=== PATIENT | female | born 1995 | race Hispanic/Latino ===

== ENCOUNTER 2019-10-22 20:05 | Emergency (ER) | payer OTHER ==
[2019-10-23 02:12] LABS: Bilirubin,Urine NEG (Negative); Blood,Urine SM (Negative); Color,Urine Yellow (Yellow); Mucus,Urine FEW /HPF; Protein,Urine <15 mg/dL mg/dL (Negative)
--- NOTE | 2019-10-23 03:44 | Ultrasound Report ---
US OB <= 14 weeks fetus, US OB transvaginal INDICATION / CLINICAL INFORMATION: preg with abd pain/bleeding. COMPARISON: None available. FINDINGS: Single, viable intrauterine . heart rate 112. [place]-rump length measures 4.1 mm, corresponding to a gestational age of 6 weeks 1 day. Both ovaries are negative. No free fluid. IMPRESSION: 1. Single, viable 6 week 1 day intrauterine . Signer Name: Delvis Scruggs MD Signed: 10/23/2019 3:39 AM Workstation Name: [email or web address]
--- NOTE | 2019-10-23 03:44 | Ultrasound Report ---
US OB <= 14 weeks fetus, US OB transvaginal INDICATION / CLINICAL INFORMATION: preg with abd pain/bleeding. COMPARISON: None available. FINDINGS: Single, viable intrauterine . heart rate 112. [place]-rump length measures 4.1 mm, corresponding to a gestational age of 6 weeks 1 day. Both ovaries are negative. No free fluid. IMPRESSION: 1. Single, viable 6 week 1 day intrauterine . Signer Name: Delvis Scruggs MD Signed: 10/23/2019 3:39 AM Workstation Name: [email or web address]
--- NOTE | 2019-10-23 04:42 | Emergency Department Report ---
ED HPI - General Chief complaint: Vaginal Bleeding Stated complaint: VAGINAL SPOTTING Time Seen by Provider: 10/23/19 02:24 Source: patient Mode of arrival: Ambulatory Limitations: No Limitations - History of Present Illness Initial comments: Patient is a 23-year-old female sparsely 6 weeks who saw small amount of blood on the toilet paper after wiping. Patient states occasionally she will have some sharp suprapubic discomfort but is pain-free at this time. Patient denies any dysuria vaginal discharge nausea vomiting d iarrhea fevers or chills. - Related Data Allergies Allergy/AdvReac Type Severity Reaction Status Date / Time No Known Allergies Allergy Unverified 10/23/19 01:49 ED Review of Systems ROS: Stated complaint: VAGINAL SPOTTING Other details as noted in HPI Comment: All other systems reviewed and negative ED Past Medical Hx - Social History Smoking Status: Former Smoker Substance Use Type: None ED Physical Exam - General Limitations: No Limitations General appearance: alert, in no apparent distress - Head Head exam: Present: atraumatic, normocephalic - Eye Eye exam: Present: normal appearance - ENT ENT exam: Present: mucous membranes moist - Neck Neck exam: Present: normal inspection - Respiratory Respiratory exam: Present: normal lung sounds bilaterally. Absent: respiratory distress, wheezes, rales - Cardiovascular Cardiovascular Exam: Present: regular rate, normal rhythm, normal heart sounds. Absent: systolic murmur, diastolic murmur, rubs, gallop - GI/Abdominal GI/Abdominal exam: Present: soft, normal bowel sounds. Absent: distended, tenderness, guarding, rebound - Extremities Exam Extremities exam: Present: normal inspection - Back Exam Back exam: Present: normal inspection - Neurological Exam Neurological exam: Present: alert, oriented X3 - Psychiatric Psychiatric exam: Present: normal affect, normal mood - Skin Skin exam: Present: warm, dry, intact, normal color. Absent: rash ED Course Vital Signs 10/22/19 10/23/19 20:57 01:37 Temperature 97.6 F 97.6 F Pulse Rate 78 72 Respiratory 20 18 Rate Blood Pressure 107/69 110/68 O2 Sat by Pulse 96 96 Oximetry ED Medical Decision Making - Lab Data Lab Results 10/23/19 10/23/19 10/23/19 Range/Units 02:07 02:40 Unknown HCG, Quant 19701 H (0-4) mIU/mL Urine Color Yellow (Yellow) Urine Turbidity Clear (Clear) Urine pH 6.0 (5.0-7.0) Ur Specific [place] 1.016 (1.003-1.030) Urine Protein <15 mg/dl (Negative) mg/dL Urine Glucose (UA) Neg (Negative) mg/dL Urine Ketones 20 (Negative) mg/dL Urine Blood Sm (Negative) Urine Nitrite Neg (Negative) Urine Bilirubin Neg (Negative) Urine Urobilinogen 2.0 (<2.0) mg/dL Ur Leukocyte Esterase Neg (Negative) Urine WBC (Auto) 1.0 (0.0-6.0) /HPF Urine RBC (Auto) 1.0 (0.0-6.0) /HPF U Epithel Cells (Auto) 4.0 (0-13.0) /HPF Urine Mucus Few /HPF Blood Type A POSITIVE - Radiology Data US OB <= 14 weeks fetus, US OB transvaginal INDICATION / CLINICAL INFORMATION: preg with abd pain/bleeding. COMPARISON: None available. FINDINGS: Single, viable intrauterine . heart rate 112. [place]-rump length measures 4.1 mm, corresponding to a gestational age of 6 weeks 1 day. Both ovaries are negative. No free fluid. IMPRESSION: 1. Single, viable 6 week 1 day intrauterine . Signer Name: Delvis Scruggs MD Signed: 10/23/2019 3:39 AM Workstation Name: [id number] Transcribed By: TM Dictated By: Delvis Scruggs MD Electronically Authenticated By: Delvis Kapoor - Medical Decision Making Patient does show a viable IUP at this time. Patient given instructions to do pelvic rest and follow with [facility]. Critical care attestation.: If time is entered above; I have spent that time in minutes in the direct care of this critically ill patient, excluding procedure time. ED Disposition Clinical Impression: First trimester bleeding Disposition: DC-01 TO HOME OR SELFCARE Is pt being admited?: No Does the pt Need Aspirin: No Condition: Stable Instructions: Threatened Miscarriage (ED) Referrals: EMMA MOONEY MD [Staff Physician] - 3-5 Days Time of Disposition: 04:41
[2019-10-23 05:06] VITALS: BP 117/70
== END 2019-10-23 04:53 | disposition home or self-care (01) ==
LOC: ED 20:05
DX: O20.8 Other hemorrhage in early pregnancy (principal); Z87.891 Personal history of nicotine dependence
CPT/HCPCS: 36415; 76801; 76817; 81001; 84702; 86900; 86901

== ENCOUNTER 2021-05-15 16:59 | Outpatient (CLI) | payer MEDICAID, OTHER ==
[2021-05-15 17:38] VITALS: BP 101/62
[2021-05-15 18:18] LABS: Amorphous Crystals,Urine Few; Bilirubin,Urine NEG (Negative); Blood,Urine NEG (Negative); Color,Urine Yellow (Yellow); Mucus,Urine FEW /HPF; Protein,Urine <15 mg/dL mg/dL (Negative)
[2021-05-15] MEDS ORDERED: LACTATED RINGERS 1,000 ML IV ONE (18:41)
== END 2021-05-15 19:22 | disposition home or self-care (01) ==
LOC: TRG 16:59 → APU 17:03 → TRG 19:22
PROVIDERS: ATTEND Obstetrics & Gynecology
DX: Z34.93 Encounter for supervision of normal pregnancy, unspecified, third trimester (principal); Z3A.32 32 weeks gestation of pregnancy
CPT/HCPCS: 81001

== ENCOUNTER 2021-06-03 15:26 | Outpatient (CLI) | payer MEDICAID ==
[2021-06-03] MEDS ORDERED: LACTATED RINGERS 1,000 ML IV ONE (15:59)
[2021-06-03 16:36] LABS: Bilirubin,Urine NEG (Negative); Blood,Urine NEG (Negative); Color,Urine Amber (Yellow); Mucus,Urine 3+ /HPF
[2021-06-03 18:10] VITALS: BP 106/60
== END 2021-06-03 18:20 | disposition home or self-care (01) ==
LOC: TRG 15:26 → APU 15:27 → TRG 18:20
PROVIDERS: ATTEND Obstetrics & Gynecology
DX: O26.893 Other specified pregnancy related conditions, third trimester (principal); R10.2 Pelvic and perineal pain; M54.9 Dorsalgia, unspecified; Z3A.35 35 weeks gestation of pregnancy
CPT/HCPCS: 59025; 81001; 87086; 96360; J7120

== ENCOUNTER 2021-06-08 11:29 | Outpatient (CLI) | payer MEDICAID ==
[2021-06-08 11:56] VITALS: BP 108/56
[2021-06-08] MEDS ORDERED: LACTATED RINGERS 500 ML IV ONE (12:00)
[2021-06-08] MEDS ORDERED: BETAMET ACET/BETAMET NA PH 6 MG/ML INJ 5 ML MDV IM ONE (12:04)
[2021-06-08] MEDS ORDERED: BETAMET ACET/BETAMET NA PH 6 MG/ML INJ 5 ML MDV IM SCH (12:15)
[2021-06-09] MEDS ORDERED: BETAMET ACET/BETAMET NA PH 6 MG/ML INJ 5 ML MDV IM SCH (10:00)
== END 2021-06-08 12:23 | disposition home or self-care (01) ==
LOC: TRG 11:29 → APU 11:31 → TRG 12:23
PROVIDERS: ATTEND Obstetrics & Gynecology
DX: Z34.93 Encounter for supervision of normal pregnancy, unspecified, third trimester (principal); Z3A.35 35 weeks gestation of pregnancy
CPT/HCPCS: 59025; J0702

== ENCOUNTER 2021-06-09 01:27 | Outpatient (CLI) | payer MEDICAID, OTHER ==
[2021-06-09 01:58] VITALS: BP 103/58
[2021-06-09] MEDS ORDERED: LACTATED RINGERS 1,000 ML IV ONE (02:33)
[2021-06-09] MEDS ORDERED: LACTATED RINGERS 1,000 ML ONE (02:34)
== END 2021-06-09 03:22 | disposition home or self-care (01) ==
LOC: TRG 01:27 → APU 01:29 → TRG 03:22
PROVIDERS: ATTEND Obstetrics & Gynecology
DX: O26.893 Other specified pregnancy related conditions, third trimester (principal); M54.5 Low back pain; Z3A.36 36 weeks gestation of pregnancy
CPT/HCPCS: 59025

== ENCOUNTER 2021-06-09 12:16 | Outpatient (CLI) | payer MEDICAID | END 2021-06-09 13:18 | disposition home or self-care (01) | LOC: TRG 12:16 → APU 12:32 → TRG 13:18 | PROVIDERS: ATTEND Obstetrics & Gynecology | DX: O47.03 False labor before 37 completed weeks of gestation, third trimester (principal); O99.343 Other mental disorders complicating pregnancy, third trimester; F41.9 Anxiety disorder, unspecified; F32.9 Major depressive disorder, single episode, unspecified; Z87.891 Personal history of nicotine dependence; Z3A.36 36 weeks gestation of pregnancy | CPT/HCPCS: 59025; 96372; J0702 ==

== ENCOUNTER 2021-06-13 00:07 | Outpatient (CLI) | payer MEDICAID ==
[2021-06-13] MEDS ORDERED: LACTATED RINGERS 500 ML IV ONE (00:21)
[2021-06-29 11:09] VITALS: BP 108/63
== END 2021-06-13 01:16 | disposition home or self-care (01) ==
LOC: TRG 00:07 → APU 00:31 → TRG 01:16
PROVIDERS: ATTEND Obstetrics & Gynecology
DX: Z34.93 Encounter for supervision of normal pregnancy, unspecified, third trimester (principal); Z3A.36 36 weeks gestation of pregnancy
CPT/HCPCS: 59025